=== PATIENT | male | born 1990 | race African-American/Black ===

== ENCOUNTER 2020-10-19 18:41 | Emergency (ER) | payer MEDICAID ==
[~2020-10-19] VITALS: Ht 172.7 cm; Wt 84.0 kg
[2020-10-19 18:54] VITALS: BP 137/97
== END 2020-10-19 20:58 | disposition home or self-care (01) ==
LOC: ER 18:41
DX: K29.70 Gastritis, unspecified, without bleeding (principal); J45.909 Unspecified asthma, uncomplicated; R07.89 Other chest pain; F17.290 Nicotine dependence, other tobacco product, uncomplicated
CPT/HCPCS: 99281; 99283; 99406

== ENCOUNTER 2020-10-27 11:47 | Emergency (ER) | payer MEDICAID ==
[~2020-10-27] VITALS: Ht 177.8 cm; Wt 73.0 kg
[2020-10-27] MEDS ORDERED: ACETAMINOPHEN 325MG TABLET PO STA (12:20)
[2020-10-27] MEDS ORDERED: ALBUTEROL 6.7GM HFA INHALER ORI ONE (12:30)
[2020-10-27 13:20] VITALS: BP 122/67
== END 2020-10-27 13:58 | disposition home or self-care (01) ==
LOC: ER 11:47 → EDBD 11:47 → ER 13:58
DX: J45.909 Unspecified asthma, uncomplicated (principal)
CPT/HCPCS: 71045; 93005; 94640; 99283

== ENCOUNTER 2023-02-07 10:13 | Emergency (ER) | payer MEDICAID ==
[~2023-02-07] VITALS: Ht 172.7 cm; Wt 86.0 kg
[2023-02-07] MEDS ORDERED: ACETAMINOPHEN 325MG TABLET PO ONE (13:00)
[2023-02-07] MEDS ORDERED: IBUPROFEN 600MG TABLET PO ONE (13:00)
[2023-02-07 13:01] VITALS: BP 145/80
[2023-02-07] MEDS ORDERED: IBUP-2029 MT (13:29)
[2023-02-07] MEDS ORDERED: ACET-2708 MT (13:29)
== END 2023-02-07 13:51 | disposition home or self-care (01) ==
LOC: ER 10:13
DX: M54.2 Cervicalgia (principal); M54.6 Pain in thoracic spine; J45.909 Unspecified asthma, uncomplicated; V49.9XXA Car occupant (driver) (passenger) injured in unspecified traffic accident, initial encounter; Y93.89 Activity, other specified; Y92.89 Other specified places as the place of occurrence of the external cause; Y99.8 Other external cause status
CPT/HCPCS: 99283

== ENCOUNTER 2024-01-05 15:59 | Emergency (ER) | payer MEDICAID ==
[~2024-01-05] VITALS: Ht 170.2 cm; Wt 90.0 kg
[~2024-01-05 15:59] MED LIST: ACET-2708 MT; IBUP-2029 MT
[2024-01-05 16:03] VITALS: O2SAT 100
[2024-01-05] MEDS: TETANUS, DIPHTHERIA, PERTUSSIS VAC/PF 0.5ML (>10YR OLD) IM ONE (17:11)
[2024-01-05] MEDS: KETOROLAC 60MG/2ML VIAL IM STA (17:11)
[2024-01-05] MEDS: LIDOCAINE HCL/PF 1% 10 MG/ML 5ML VIAL INFIL ONE (17:43)
[2024-01-05] MEDS: BACITRACIN ZINC OINT UDPKT TOP ONE (17:43)
[2024-01-05] MEDS ORDERED: CEPH500T MT (19:25)
[2024-01-05] MEDS ORDERED: IBUP-2029 PO (19:25)
[2024-01-05 19:39] VITALS: BP 138/83; PULSE 68; RESP 18; TEMP 98.5
== END 2024-01-05 19:41 | disposition home or self-care (01) ==
LOC: ER 15:59
DX: S61.210A Laceration without foreign body of right index finger without damage to nail, initial encounter (principal); J45.909 Unspecified asthma, uncomplicated; X99.1XXA Assault by knife, initial encounter; Y93.89 Activity, other specified; Y92.89 Other specified places as the place of occurrence of the external cause; Y99.8 Other external cause status
CPT/HCPCS: 73080; 73140; 90715; 12002; 90471; 96372; 99284; J1885; J3490; Z7610 ×3

== ENCOUNTER 2024-10-19 19:37 | Emergency (ER) | payer MEDICAID, OTHER ==
[~2024-10-19] VITALS: Ht 175.3 cm; Wt 86.0 kg
[~2024-10-19 19:37] MED LIST changes: +CEPH500T MT; +IBUP-2029 PO
[2024-10-19 20:15] VITALS: TEMP 98.1; O2SAT 99
[2024-10-19 20:35] LABS: HEMOGLOBIN. 14.3 g/dL (14.0-18.0); WHITE BLOOD COUNT 7.5 x1000/uL (4.5-11.0)
[2024-10-19 20:37] LABS: BASOPHILS % 0.8 % (0.0-2.0); EOSINOPHILS % 2.6 % (0.0-5.0); HEMATOCRIT. 43.9 % (42.0-52.0); LYMPHOCYTES % 33.6 % (20.0-50.0); MEAN CORPUSCULAR HEMOGLOBIN 29.5 pg (28.0-32.0); MEAN CORPUSCULAR HGB CONC 32.7 g/dL (31.0-37.0); MEAN CORPUSCULAR VOLUME 90.4 fL (80.0-94.0); MEAN PLATELET VOLUME 8.3 fl (7.4-10.4); MONOCYTES % 11.8 % (2.0-8.0); NEUTROPHILS % 51.2 % (40.0-76.0); PLATELET 229 x1000/uL (130-400); RED BLOOD CELL COUNT 4.85 mill/uL (4.7-6.1)
[2024-10-19 20:40] LABS: CHLORIDE 105 mEq/L (98-107); SODIUM 139 mEq/L (136-145)
[2024-10-19 20:41] LABS: CALCIUM 9.4 mg/dL (8.7-10.4); CARBON DIOXIDE 28 mEq/L (21-32)
[2024-10-19 20:46] LABS: CREATININE 0.9 mg/dL (0.6-1.3); GLUCOSE 85 mg/dL (70-105); UREA NITROGEN BLOOD 12 mg/dL (9-23)
[2024-10-19 21:26] LABS: TROPONIN I HIGH SENSITIVITY < 4 ng/L (3.0-53)
[2024-10-20 00:14] LABS: T4 FREE 1.04 ng/dL (0.89-1.76); THYROID STIMULATING HORMONE 2.57 uIU/mL (0.55-4.78)
[2024-10-20 00:20] LABS: TROPONIN I HIGH SENSITIVITY < 4 ng/L (3.0-53)
[2024-10-20] MEDS: KETOROLAC 30MG/ML VIAL IM ONE (01:32)
[2024-10-20 02:26] VITALS: BP 139/71; PULSE 72; RESP 18; O2SAT 98
== END 2024-10-20 02:34 | disposition home or self-care (01) ==
LOC: ER 19:37
DX: R07.89 Other chest pain (principal); J45.909 Unspecified asthma, uncomplicated
CPT/HCPCS: 99285; 71045; 80048; 84439; 84443; 85025; 84484; 36415; 93005; 96372; J1885

== ENCOUNTER 2024-10-22 08:35 | Emergency (ER) | payer OTHER ==
[~2024-10-22] VITALS: Ht 175.3 cm; Wt 86.1 kg
[2024-10-22 08:38] VITALS: O2SAT 99
[2024-10-22 08:40] VITALS: TEMP 97.9; O2SAT 98
[2024-10-22 10:14] VITALS: PULSE 98
[2024-10-22] MEDS: KETOROLAC 30MG/ML VIAL IM ONE (10:14)
[2024-10-22 10:15] VITALS: BP 150/98; RESP 16
[2024-10-22] MEDS: LIDOCAINE 5% PATCH TOP SCH (10:15)
[2024-10-22] MEDS ORDERED: NAPR220C61 MT (11:13)
== END 2024-10-22 11:37 | disposition home or self-care (01) ==
LOC: ER 08:35
DX: S20.219A Contusion of unspecified front wall of thorax, initial encounter (principal); S39.92XA Unspecified injury of lower back, initial encounter; G89.11 Acute pain due to trauma; J45.909 Unspecified asthma, uncomplicated; W11.XXXA Fall on and from ladder, initial encounter; Y93.89 Activity, other specified; Y92.89 Other specified places as the place of occurrence of the external cause; Y99.8 Other external cause status
CPT/HCPCS: 99283; 71101; 96372; J1885

== ENCOUNTER 2025-01-07 16:43 | Inpatient (IN) | payer BC, MEDICAID ==
[~2025-01-07] VITALS: Ht 175.3 cm; Wt 79.8 kg
[~2025-01-07 16:43] MED LIST changes: +NAPR220C61 MT
[2025-01-07 17:37] LABS: BASOPHILS % 0.9 % (0.0-2.0); EOSINOPHILS % 3.5 % (0.0-5.0); HEMATOCRIT. 44.3 % (42.0-52.0); HEMOGLOBIN. 14.1 g/dL (14.0-18.0); LYMPHOCYTES % 32.8 % (20.0-50.0); MEAN CORPUSCULAR HEMOGLOBIN 28.8 pg (28.0-32.0); MEAN CORPUSCULAR HGB CONC 31.7 g/dL (31.0-37.0); MEAN PLATELET VOLUME 8.5 fl (7.4-10.4); NEUTROPHILS % 52.8 % (40.0-76.0); PLATELET 216 x1000/uL (130-400); RED BLOOD CELL COUNT 4.87 mill/uL (4.7-6.1); RED CELL DISTRIBUTION WIDTH 14.1 % (11.6-14.6); WHITE BLOOD COUNT 7.2 x1000/uL (4.5-11.0)
[2025-01-07 17:44] LABS: CHLORIDE 104 mEq/L (98-107); POTASSIUM 4.4 mEq/L (3.5-5.1); SODIUM 140 mEq/L (136-145)
[2025-01-07 17:45] LABS: CALCIUM 9.4 mg/dL (8.7-10.4); CARBON DIOXIDE 29 mEq/L (21-32)
[2025-01-07 17:50] LABS: CREATININE 0.9 mg/dL (0.6-1.3); GLUCOSE 89 mg/dL (70-105); UREA NITROGEN BLOOD 12 mg/dL (9-23)
[2025-01-07 17:55] LABS: TROPONIN I HIGH SENSITIVITY < 4 ng/L (3.0-53)
[2025-01-07 20:22] LABS: TROPONIN I HIGH SENSITIVITY < 4 ng/L (3.0-53)
[2025-01-07] MEDS ORDERED: MAGNESIUM/ALUMINUM HYDROXIDE/SIMETHICONE 30ML UDC PO PRN (21:00)
[2025-01-07] MEDS ORDERED: ONDANSETRON HCL 4MG/2ML INJ IV PRN (21:00)
[2025-01-07] MEDS ORDERED: HYDRALAZINE 20MG/ML VIAL IV PRN (21:00)
[2025-01-07] MEDS ORDERED: IPRATROPIUM/ALBUTEROL 0.5-3(2.5)MG/3ML NEB HHN PRN (21:00)
[2025-01-07 21:29] LABS: TROPONIN I HIGH SENSITIVITY < 4 ng/L (3.0-53)
[2025-01-07] MEDS: FAMOTIDINE 20MG TABLET PO NR (21:54)
[2025-01-07] MEDS: ACETAMINOPHEN 325MG TABLET PO PRN (21:55)
[2025-01-07] MEDS: MELATONIN 3MG TABLET PO PRN (21:55)
[2025-01-08 06:21] LABS: CHLORIDE 107 mEq/L (98-107); POTASSIUM 3.9 mEq/L (3.5-5.1); SODIUM 140 mEq/L (136-145)
[2025-01-08 06:22] LABS: CALCIUM 9.3 mg/dL (8.7-10.4); CARBON DIOXIDE 26 mEq/L (21-32)
[2025-01-08 06:26] LABS: CREATININE 0.8 mg/dL (0.6-1.3)
[2025-01-08 06:27] LABS: GLUCOSE 90 mg/dL (70-105); UREA NITROGEN BLOOD 7 mg/dL (9-23)
[2025-01-08 06:30] LABS: BASOPHILS % 1.1 % (0.0-2.0); EOSINOPHILS % 6.4 % (0.0-5.0); HEMATOCRIT. 45.2 % (42.0-52.0); HEMOGLOBIN. 14.4 g/dL (14.0-18.0); LYMPHOCYTES % 36.7 % (20.0-50.0); MEAN CORPUSCULAR HEMOGLOBIN 28.7 pg (28.0-32.0); MEAN CORPUSCULAR HGB CONC 31.7 g/dL (31.0-37.0); MEAN CORPUSCULAR VOLUME 90.4 fL (80.0-94.0); MEAN PLATELET VOLUME 8.4 fl (7.4-10.4); MONOCYTES % 11.8 % (2.0-8.0); PLATELET 193 x1000/uL (130-400); RED BLOOD CELL COUNT 5.01 mill/uL (4.7-6.1); RED CELL DISTRIBUTION WIDTH 14.4 % (11.6-14.6); WHITE BLOOD COUNT 5.1 x1000/uL (4.5-11.0)
[2025-01-08] MEDS: PANTOPRAZOLE 40MG DR TABLET PO SCH (07:36)
[2025-01-08] MEDS: GUAIFENESIN 200MG/10ML SUGAR FREE UDC PO PRN (07:36)
[2025-01-08 08:00] VITALS: BP 138/98; PULSE 90; RESP 15; TEMP 36.7; O2SAT 97
[2025-01-08] MEDS: LORATADINE 10MG TABLET PO SCH (09:18)
[2025-01-08] MEDS ORDERED: FLUT12AE7 INH (11:59)
[2025-01-08] MEDS ORDERED: ONDA4TAB50 MT (11:59)
[2025-01-08] MEDS ORDERED: PANT40TA51 PO (11:59)
[2025-01-08] MEDS ORDERED: CLAR10 PO (11:59)
[2025-01-08 12:15] VITALS: BP 146/92; PULSE 79; TEMP 98; O2SAT 98
== END 2025-01-08 12:41 | disposition home or self-care (01) | DRG 313 ==
LOC: ER 16:43 → EDBEDREQTM 19:01 → EDBEDREQ 19:01 → 5WST 21:05
PROVIDERS: ADMIT Hospitalist; ATTEND Hospitalist
DX: R07.89 Other chest pain (principal); J45.909 Unspecified asthma, uncomplicated; F12.90 Cannabis use, unspecified, uncomplicated; K21.9 Gastro-esophageal reflux disease without esophagitis; Z87.891 Personal history of nicotine dependence; Z79.899 Other long term (current) drug therapy
CPT/HCPCS: 36415; 71045; 80048; 83880; 84145; 84484; 85025; 85379; 93005; 99285